=== PATIENT | male | born 1975 | race Caucasian/White ===

== ENCOUNTER 2021-12-02 21:42 | Inpatient (IN) | payer MEDICAID, SELFPAY ==
[2021-12-02 21:43] VITALS: BP 151/90; PULSE 70; RESP 15; TEMP 36.5; O2SAT 95; BMI 27.4
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
[2021-12-02 22:23] LABS: Red Blood Cells-Urine 0 SEEN /hpf (0-5)
[2021-12-02 22:37] LABS: Color, Urine Amber (Yellow); Glucose, Dipstick Normal (Normal); Ketone-Dipstick 5 mg/dl (Negative); Leukocyte Esterase-Dipstick 25 /ul (Negative); Nitrite-Dipstick Negative (Negative); Occult Blood-Urine Negative /ul (Negative); Protein-Dipstick Negative (Negative); Specific Gravity, Urine 1.025 (1.002-1.030); Urine Bilirubin Dipstick Negative (Negative); Urine Clarity Clear (Clear); Urine Urobilinogen 4 mg/dl (Normal)
[2021-12-02 22:41] LABS: Absolute Lymphocyte Count 4.69 X10^3/uL (0.83-4.51); Basophil# 0.09 X10^3/uL; Basophil% 0.6 % (0-1); Eosinophil# 0.32 X10^3/uL; Eosinophils% 2.1 % (0-5); Hematocrit 47.1 % (40-54); Hemoglobin 15.6 g/dL (13.0-16.5); Lymphocyte # 4.69 X10^3/ul (0.83-4.51); Lymphocyte % 31.3 % (19-41); Mean Corp Hgb Conc 33.1 g/dL (32-36); Mean Corpuscular Hgb 29.8 pg (27.0-32.0); Mean Corpuscular Volume 89.9 fL (80-94); Mean Platelet Vol. 10.8 fl (6.2-12.0); Monocyte# 1.84 X10^3/uL; Monocyte% 12.3 % (0-10); NRBC Flagged by Analyzer 0 % (0-5); Neutrophil # 7.98 X10^3/uL (2.7-7.7); Neutrophil % 53.3 % (47-70); POSITIVE DIFFERENTIAL YES; Platelet Count 205 K/mm3 (150-450); RBC Distribution Width CV 15.5 % (11.6-14.6); RBC Distribution Width SD 51.1 fl (35.1-43.9); Red Blood Count 5.24 M/mm3 (4.6-6.2)
[2021-12-02 22:47] LABS: International Normalized Ratio 1.2; Prothrombin Time (Protime)PT. 15.3 SECONDS (11.7-14.9)
[2021-12-02 22:55] LABS: Bacteria 2+ /hpf (None Seen); Mucous, Urine 3+ /hpf (<or=2+); Squamous Epithelial Cells - UA 0-5 SEEN /hpf (0-5); White Blood Cells 0-5 SEEN /hpf (0-5)
[2021-12-02 22:57] LABS: Calcium Oxalate Crystals Ur 2+ /hpf (<or=2+)
--- NOTE | 2021-12-02 22:57 | NURSING ---
Pt reports contact: [id number] Shila Lugo [phone]
[2021-12-02 22:58] VITALS: BP 151/90; PULSE 70; RESP 15; TEMP 36.5; O2SAT 95
[2021-12-02 23:06] LABS: Amphetamine Urine VISTA NEGATIVE (<1000 ng/mL); Barbiturate Urine VISTA NEGATIVE (< 200 ng/mL); Benzodiazepine Urine VISTA NEGATIVE (< 200 ng/mL); Cocaine Urine VISTA NEGATIVE (< 300 ng/mL); Ecstacy Urine VISTA NEGATIVE (< 500 ng/mL); Methadone Urine VISTA NEGATIVE (< 300 ng/mL); PCP Urine VISTA NEGATIVE (< 25 ng/mL); THC Urine VISTA NEGATIVE (< 50 ng/mL); Vista UDS pH Range 4
[2021-12-02 23:09] LABS: Differential Indicated SCAN CRITERIA MET
[2021-12-02 23:13] LABS: Anisocytosis RARE; Macrocytosis RARE; Platelet Estimate ADEQUATE (ADEQ); Red Cell Morphology N CHROM NORMAL (NORM C&C)
[2021-12-02 23:20] VITALS: BMI 27.3
[2021-12-02 23:29] VITALS: BP 132/72; PULSE 58; RESP 18; TEMP 37.1; O2SAT 95
[2021-12-02 23:46] LABS: ALB/GLOB Ratio 0.4 RATIO (0.9-2.4); AST(SGOT) 50 U/L (15-37); Alanine Aminotransfer ALT/SGPT 30 U/L (16-61); Albumin, Serum 2.7 g/dL (3.2-5.0); Alkaline Phosphatase 147 U/L (45-117); Anion Gap 4 (5-15); BUN 11 mg/dL (7-18); BUN/Creat Ratio 11.7 RATIO (10-20); Calcium,Total 8.8 mg/dL (8.5-10.1); Chloride 106 mmol/L (98-107); Creatinine, Serum 0.94 mg/dL (0.70-1.30); EST Glomerular Filtration Rate 93 mL/min (>60); Est Glom Filt Rate - Afr Amer 112 mL/min (>60); Glucose 108 mg/dL (74-106); Potassium 4.1 mmol/L (3.5-5.1); Protein, Total 8.7 g/dL (6.4-8.2); Sodium Level 138 mmol/L (136-145)
[2021-12-02] MEDS: traZODone 100 MG Tablet PO (23:52)
[2021-12-02] MEDS: Dicyclomine 10 MG Capsule 20 MG PO (23:53)
[2021-12-03 06:36] VITALS: BP 126/78; PULSE 50; RESP 16; TEMP 36.6; O2SAT 100
--- NOTE | 2021-12-03 07:55 | PN.HOSP_ITS ---
Subjective Subjective Follow-up on acute opioid withdrawal: Patient was seen and examined. No events overnight. Objective Data Objective Data Vital Signs: Vital Signs Temp Pulse Resp BP Pulse Ox O2 Del Method 97.9 F 50 L 16 126/78 H 100 Room Air 12/03/21 06:36 12/03/21 06:36 12/03/21 06:36 12/03/21 06:36 12/03/21 06:36 12/03/21 07:41 Oxygen Delivery Method Room Air Weight: 76.9 kg Body Mass Index (BMI) 27.3 Intake & Output: Intake and Output for Last 24 Hours 12/01/21 12/02/21 12/03/21 23:59 23:59 23:59 Intake Total 200 / 200 Balance 200 / 200 Lab / Micro Data Result Diagrams: 12/02/21 22:31 12/02/21 22:31 Labs: Laboratory Results - last 24 hr 12/02/21 22:14: Urine Opiates Screen POSITIVE H, Urine Methadone Screen NEGATIVE, Ur Barbiturates Screen NEGATIVE, Ur Phencyclidine Scrn NEGATIVE, Ur Amphetamines Screen NEGATIVE, MDMA (Ecstasy) Screen NEGATIVE, U Benzodiazepines Scrn NEGATIVE, Urine Cocaine Screen NEGATIVE, U Cannabinoids Screen NEGATIVE, Ur Drug Screen Comment 12/02/21 22:14: Urine Color Maricel, Urine Clarity Clear, Urine pH 6.0, Ur Specific Railroad 1.025, Urine Protein Negative, Urine Glucose (UA) Normal, Urine Ketones 5 H, Urine Occult Blood Negative, Urine Nitrite Negative, Urine Bilirubin Negative, Urine Urobilinogen 4 H, Ur Leukocyte Esterase 25 H, Urine RBC 0 SEEN, Urine WBC 0-5 SEEN, Ur Squamous Epith Cells 0-5 SEEN, Calcium Oxalate Crystal 2+, Urine Bacteria 2+, Urine Mucus 3+ 12/02/21 22:31: WBC 15.0 H, RBC 5.24, Hgb 15.6, Hct 47.1, MCV 89.9, MCH 29.8, MCHC 33.1, RDW Std Deviation 51.1 H, RDW Coeff of Bryn 15.5 H, Plt Count 205, MPV 10.8, Immature Gran % (Auto) 0.400, Neut % (Auto) 53.3, Lymph % (Auto) 31.3, [place] % (Auto) 12.3 H, Eos % (Auto) 2.1, Baso % (Auto) 0.6, Absolute Neuts (auto) 8.0 H, Absolute Lymphs (auto) 4.69 H, Nucleated RBC % 0, Differential Comment SEE COMMENT, Diff Path Review May foll, Platelet Estimate ADEQUATE, RBC Morphology N CHROM, Anisocytosis RARE, Macrocytosis RARE 12/02/21 22:31: PT 15.3 H, INR 1.2 12/02/21 22:31: Sodium 138, Potassium 4.1, Chloride 106, Carbon Dioxide 28.0, Anion Gap 4 L, BUN 11, Creatinine 0.94, Estim Creat Clear Calc 90.50, Est GFR (MDRD) Af Amer 112, Est GFR (MDRD) Non-Af 93, BUN/Creatinine Ratio 11.7, Glucose 108 H, Calcium 8.8, Total Bilirubin 0.80, AST 50 H, ALT 30, Alkaline Phosphatase 147 H, Total Protein 8.7 H, Albumin 2.7 L, Globulin 6.0 H, Albumin/Globulin Ratio 0.4 L 12/02/21 22:31: Ethyl Alcohol 6.0 Physical Exam Narrative Physical exam: General: Alert, Oriented x3, Cooperative, No apparent distress HEENT: Atraumatic Oral: Moist Mucosa Neck: Supple Lungs: Clear to auscultation Cardiovascular: HS I+II, regular, no murmurs Abdomen: Bowel Sounds Present, Soft, Non Tender Extremities: No edema Skin: No rashes, No breakdown Neurological: Grossly intact Psych/Mental Status: Appropriate Assessment & Plan Assessment/Plan (1) Opiate withdrawal: PLAN: Plan 1. Acute opioid withdrawal, last Cina score was 0 Continue on Subutex withdrawal protocol 2. Nicotine dependence, advised to quit, continue on replacement 3. DVT PPx-low risk, early ambulation recommended Charges/Coding Visit Charges Inpatient E&M: 65560 Subs Hosp L2
[2021-12-03 12:00] VITALS: BP 131/86; PULSE 60; RESP 18; TEMP 36.7; O2SAT 94
--- NOTE | 2021-12-03 13:35 | ADDICTION ---
This worker met with pt to conduction addiction assessments. Pt participated and indicated he was going to [facility] outpatient facility in [place] post d/c. He did not indicate a need for transport post d/c.
[2021-12-03 16:59] VITALS: BP 123/82; PULSE 49; RESP 18; TEMP 36.6; O2SAT 96
[2021-12-03] MEDS: Nicotine Polacrilex 2 MG GUM PO (17:03)
[2021-12-03] MEDS: Dicyclomine 10 MG Capsule 20 MG PO (17:03)
[2021-12-03] MEDS: Methocarbamol 750 MG Tablet 1500 MG PO (21:15)
[2021-12-03] MEDS: traZODone 100 MG Tablet PO (21:15)
[2021-12-03 23:00] VITALS: BP 109/66; PULSE 47; RESP 18; TEMP 36.9; O2SAT 98
[2021-12-04 05:00] VITALS: BP 113/71; PULSE 54; RESP 18; TEMP 36.6; O2SAT 94
[2021-12-04] MEDS: Dicyclomine 10 MG Capsule 20 MG PO ×3 (05:06→21:08)
[2021-12-04 08:40] VITALS: BP 116/67; PULSE 48; RESP 18; TEMP 36.2; O2SAT 94
--- NOTE | 2021-12-04 10:02 | PCM.PN.HOSP ---
Subjective Subjective Follow-up on acute opioid withdrawal: Patient was seen and examined.? Denied any new complaints. No events overnight. Objective Data Objective Data Vital Signs: Vital Signs Temp Pulse Resp BP Pulse Ox O2 Del Method 97.1 F L 48 L 18 116/67 94 Room Air 12/04/21 08:40 12/04/21 08:40 12/04/21 08:40 12/04/21 08:40 12/04/21 08:40 12/04/21 08:40 Oxygen Delivery Method Room Air Weight: 76.9 kg Body Mass Index (BMI) 27.3 Intake & Output: Intake and Output for Last 24 Hours 12/02/21 12/03/21 12/04/21 23:59 23:59 23:59 Intake Total 800 / 1280 700 / 700 Balance 800 / 1280 700 / 700 Lab / Micro Data Result Diagrams: 12/02/21 22:31 12/02/21 22:31 Physical Exam Narrative Physical exam: General: Alert, Oriented x3, Cooperative, No apparent distress HEENT: Atraumatic Oral: Moist Mucosa Neck: Supple Lungs: Clear to auscultation Cardiovascular: HS I+II, regular, no murmurs Abdomen: Bowel Sounds Present, Soft, Non Tender Extremities: No edema Skin: No rashes, No breakdown Neurological: Grossly intact Psych/Mental Status: Appropriate Assessment & Plan Assessment/Plan (1) Opiate withdrawal: PLAN: Plan 1. Acute opioid withdrawal, improved Continue on Subutex withdrawal protocol 2. Nicotine dependence, advised to quit, continue on replacement 3. DVT PPx-low risk, early ambulation recommended Charges/Coding Visit Charges Inpatient E&M: 74992 [facility] Hosp L1
[2021-12-04 14:28] VITALS: O2SAT 94
[2021-12-04 14:45] VITALS: BP 120/78; PULSE 48; RESP 16; TEMP 36.7; O2SAT 99
[2021-12-04 21:00] VITALS: BP 123/78; PULSE 46; RESP 18; TEMP 36.5; O2SAT 97
[2021-12-04] MEDS: traZODone 100 MG Tablet PO (21:08)
[2021-12-05 03:00] VITALS: BP 115/76; PULSE 45; RESP 18; TEMP 36.6; O2SAT 96
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
[2021-12-05 13:00] VITALS: BP 131/81; PULSE 74; RESP 15; TEMP 36.3; O2SAT 97
[2021-12-05 13:32] LABS: Pathologist Review Reviewed
== END 2021-12-05 15:59 | disposition home or self-care (01) | DRG 773 ==
LOC: ED 22:28 → MS3 23:02
PROVIDERS: Admitting Provider Hospitalist; Emergency Provider Emergency Medicine; Visit Provider Internal Medicine
DX: F11.23 Opioid dependence with withdrawal (principal); F17.210 Nicotine dependence, cigarettes, uncomplicated; I10 Essential (primary) hypertension
CPT/HCPCS: 80053; 80307; 81001; 82077; 85025; 85610; 99283